=== PATIENT | male | born 1980 | race African-American/Black ===

== ENCOUNTER 2021-08-26 14:29 | Emergency (ER) | payer OTHER ==
[~2021-08-26] VITALS: Ht 175.3 cm; Wt 104.0 kg
[2021-08-26] MEDS ORDERED: IBUP-2029 MT (15:53)
[2021-08-26] MEDS ORDERED: CEPH500C2 MT (15:53)
[2021-08-26 16:00] VITALS: BP 112/88
== END 2021-08-26 16:30 | disposition home or self-care (01) ==
LOC: ER 14:29
DX: L02.415 Cutaneous abscess of right lower limb (principal)
CPT/HCPCS: 99281; 99283